=== PATIENT | male | born 2000 ===

== ENCOUNTER 2018-09-24 19:22 | Emergency (ER) | payer MEDICAID ==
[2018-09-24 19:31] VITALS: O2SAT 98
[2018-09-24 20:18] LABS: BASO % 0.2 % (0.0-2.0); EOS # 0.1 K/uL (0.0-0.7); EOS % 0.6 % (0.0-4.0); HEMOGLOBIN 15.3 g/dL (12.0-18.0); LYMPH # 4.1 K/uL (1.0-4.3); LYMPH % 37.9 % (20.0-40.0); MEAN CELL VOLUME 85.7 fl (80.0-94.0); MEAN CORPUSCULAR HEMOGLOBIN 27.6 pg (27.0-31.0); MEAN CORPUSCULAR HGB CONC 32.2 g/dL (33.0-37.0); MEAN PLATELET VOLUME 9.3 fl (7.2-11.7); MONO # 0.8 K/uL (0.0-0.8); MONO % 7.1 % (0.0-10.0); NEUT # 5.8 K/uL (1.8-7.0); NEUT % 54.2 % (50.0-75.0); NRBC % 0.1 % (0.0-0.0); RBC 5.52 Mil/uL (4.40-5.90); RED CELL DISTRIBUTION WIDTH 13.5 % (11.5-14.5); WHITE BLOOD COUNT 10.7 K/uL (4.8-10.8)
[2018-09-24 20:29] LABS: BLOOD UREA NITROGEN 10 mg/dl (9-20); CALCIUM 9.4 mg/dL (8.4-10.2); GFR NON-AFRICAN AMERICAN > 60
--- NOTE | 2018-09-24 20:30 | ED PDOC ---
HPI: Seizure Time Seen by Provider: 09/24/18 19:32 Chief Complaint (Nursing): Seizure Chief Complaint (Provider): Seizure History Per: Patient, Family History/Exam Limitations: no limitations Recent Seizure Activity Began: Just Before Arrival Number Of Seizures: One Length Of Seizures (Duration): Unknown Additional Complaint(s): 17 year old male with pmHx of seizures, arrives to ED for an evaluation of witnessed seizure prior to arrival. Family member states the patient was playing soccer then fell, hitting his face on the ground. Patient recalls waking up with nose cut by his glasses. Additionally, he reports facial and right wrist pain. He denies headache, change in seizure medication, difficulty sleeping, stress, alcohol or drug use. Patient admits to missing a dose 3 weeks ago and states he has been on the same dose "for a very long time". PCP: none provided Past Medical History Reviewed: Historical Data, Nursing Documentation, Vital Signs Vital Signs: Last Vital Signs Temp 98.9 F 09/24/18 19:28 Pulse 113 H 09/24/18 19:28 Resp 20 09/24/18 19:28 BP 140/84 09/24/18 19:28 Pulse Ox 98 09/24/18 19:28 - Medical History PMH: Seizures - Family History Family History: States: Unknown Family Hx - Allergies Allergies/Adverse Reactions: Allergies Allergy/AdvReac Type Severity Reaction Status Date / Time amoxicillin [From Augmentin] Allergy RASH Verified 09/24/18 19:28 clavulanic acid Allergy RASH Verified 09/24/18 19:28 [From Augmentin] Review of Systems ROS Statement: Except As Marked, All Systems Reviewed And Found Negative ENT: Positive for: Other (facial abrasions) Musculoskeletal: Positive for: Hand Pain (right wrist) Neurological: Positive for: Seizures. Negative for: Headache Physical Exam - Reviewed Nursing Documentation Reviewed: Yes Vital Signs Reviewed: Yes - Physical Exam Appears: Positive for: No Acute Distress Head Exam: Positive for: ATRAUMATIC, NORMAL INSPECTION, NORMOCEPHALIC Skin: Positive for: Normal Color Eye Exam: Positive for: Normal appearance, EOMI, PERRL ENT: Positive for: Other (abrasions to nasal bridge and left caodaism area) Neck: Positive for: Normal, Painless ROM, Supple Cardiovascular/Chest: Positive for: Regular Rate, Rhythm Respiratory: Positive for: Normal Breath Sounds. Negative for: Respiratory Distress Gastrointestinal/Abdominal: Positive for: Normal Exam, Soft. Negative for: Tenderness Back: Positive for: Normal Inspection Extremity: Positive for: Normal ROM (right wrist and digits. neurovascularly intact), Swelling (right wrist). 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 Negative for: Motor/Sensory Deficits, Aphasia - Laboratory Results Result Diagrams: 09/24/18 20:16 09/24/18 20:00 - ECG O2 Sat by Pulse Oximetry: 98 (RA) Pulse Ox Interpretation: Normal Medical Decision Making Medical Decision Making: Time: 1937 Initial Plan: 17 year old male with seizure disorder presents with seizure event. Unclear to percipient, although, likely patient is larger than when he initially started medication and will require an adjustment in dosage. * CT head * CT maxillofacial * Labs * Toradol 15mg IVP * XR right wrist Time: 2042 --CT head The study shows normal configuration of sella turcica. There are no intra or extra-axial collections. There is no mass effect or midline shift. There is no evidence of hematoma formation. No hydrocephalus is present. No abnormal calcifications are noted. No significant abnormalities are seen either in the posterior fossa or supratentorial compartment. The sinuses and mastoid air cells are patent. IMPRESSION: No evidence of acute intracranial pathology. Time: 2046 --CT maxillofacial There is no fracture or dislocation. The sinuses are patent. Periorbital soft tissues are intact. The globes of the eyes disclose bilaterally symmetrical size and shape and normal appearance of the various layers. The intraocular lenses and the vitreous are unremarkable. The orbits show bilaterally symmetrical shape. The orbital fat and the intraorbital portions of the optic nerves are bilaterally symmetric and normal in size, shape and course. The extraocular muscles are unremarkable. Chronic bilateral ethmoid and maxillary sinusitis. IMPRESSION: Sinusitis. No fracture. Unremarkable study. Time: 2145 --XR right wrist FINDINGS: BONES: No acute osseous abnormality. No acute fracture. JOINTS: No dislocation. The carpal bones demonstrate normal alignment. SOFT TISSUES: The soft tissues are unremarkable. IMPRESSION: No acute osseous abnormality. No acute fracture or dislocation. Time: 2227 --Upon provider reevaluation, patient is medically stable, reports feeling better, and requires no further treatment in the ED at this time. Patient will be discharged home and advised to follow up with neurologist. Counseling was provided and all questions were answered regarding diagnosis. There is agreement to discharge plan. Return if symptoms persist or worsen. Advised patient to have Dr. Nash or Dr. Keen obtain levels from lab testing to guide adjustment in medications. Clinical Impression: Seizure disorder Scribe Attestation: Documented by Batsheva Alegria, acting as a scribe for Edison Sawyer MD. Provider Scribe Attestation: All medical record entries made by the Scribe were at my direction and personally dictated by me. I have reviewed the chart and agree that the record accurately reflects my personal performance of the history, physical exam, medical decision making, and the department course for this patient. I have also personally directed, reviewed, and agree with the discharge instructions and disposition. Disposition - Clinical Impression Clinical Impression: Seizure disorder - Patient ED Disposition Is Patient to be Admitted: No Counseled Patient/Family Regarding: Studies Performed, Diagnosis, Need For Followup - Disposition Referrals: Jace Nash MD [Family Provider] - Luan Keen MD [Non-Staff] - Disposition: Routine/Home Disposition Time: 22:28 Condition: IMPROVED Additional Instructions: Please followup with your primary care doctor and neurologist and discuss the possibility of dosage changes. Instructions: Seizures, Adult (DC) Forms: [email or web address] ([place])
[2018-09-24 22:43] VITALS: BP 130/76; PULSE 67; RESP 16; TEMP 97.9
--- NOTE | 2018-09-25 07:49 | CT ---
Date of service: 09/24/2018 PROCEDURE: CT MAXILLOFACIAL BONES WITHOUT CONTRAST HISTORY: fall on face after seizure COMPARISON: None available. TECHNIQUE: Contiguous axial CT images of the maxillofacial bones were obtained. Coronal and sagittal reformats were generated. Radiation dose: Total exam DLP = 0.0 mGy-cm. This CT exam was performed using one or more of the following dose reduction techniques: Automated exposure control, adjustment of the mA and/or kV according to patient size, and/or use of iterative reconstruction technique. FINDINGS: NASAL BONES: Unremarkable. ORBITS: Unremarkable. PARANASAL SINUSES/ MASTOIDS: Left maxillary mucoperiosteal sinus disease with a small air-fluid level compatible with sinusitis. MAXILLA: Unremarkable. MANDIBLE/ TEMPOROMANDIBULAR JOINTS: Unremarkable. SKULL BASE: Unremarkable. TEMPORAL BONES: Middle ears and mastoid grossly unremarkable. OTHER FINDINGS: None. IMPRESSION: Left maxillary mucoperiosteal sinus disease with a small air-fluid level compatible with sinusitis.
--- NOTE | 2018-09-25 07:50 | CT ---
Date of service: 09/24/2018 PROCEDURE: CT HEAD WITHOUT CONTRAST. HISTORY: fall on face after seizure COMPARISON: None available. TECHNIQUE: Axial computed tomography images were obtained through the head/brain without intravenous contrast. Radiation dose: Total exam DLP = 1559.88 mGy-cm. This CT exam was performed using one or more of the following dose reduction techniques: Automated exposure control, adjustment of the mA and/or kV according to patient size, and/or use of iterative reconstruction technique. FINDINGS: HEMORRHAGE: No intracranial hemorrhage. BRAIN: No mass effect or edema. No atrophy or chronic microvascular ischemic changes. VENTRICLES: Unremarkable. No hydrocephalus. CALVARIUM: Unremarkable. PARANASAL SINUSES: Unremarkable as visualized. No significant inflammatory changes. MASTOID AIR CELLS: Unremarkable as visualized. No inflammatory changes. OTHER FINDINGS: None. IMPRESSION: Normal CT of the Head.
--- NOTE | 2018-09-25 08:28 | RAD ---
Date of service: 09/24/2018 PROCEDURE: Right Wrist Radiographs. HISTORY: swelling after fall COMPARISON: None. FINDINGS: BONES: Normal. No fracture. JOINTS: Normal. No dislocation. SOFT TISSUES: Normal. OTHER FINDINGS: None. IMPRESSION: Normal right wrist radiographs.
== END 2018-09-24 22:43 | disposition home or self-care (01) ==
LOC: H.ER 19:22
DX: G40.909 Epilepsy, unspecified, not intractable, without status epilepticus (principal); S01.21XA Laceration without foreign body of nose, initial encounter; M25.531 Pain in right wrist; W19.XXXA Unspecified fall, initial encounter; Y93.66 Activity, soccer; J32.0 Chronic maxillary sinusitis; J32.2 Chronic ethmoidal sinusitis; Z88.0 Allergy status to penicillin
CPT/HCPCS: 70450; 70486; 73110; 80048; 80175; 80177; 85025; 96374; 96375; 99285; J1885; J2405